=== PATIENT | female | born 1985 | race Asian ===

== ENCOUNTER 2018-10-26 09:04 | Observation (INO) | payer BC ==
[2018-10-26] MEDS ORDERED: ONDANSETRON 4 MG/2 ML VIAL ONE (09:13)
[2018-10-26] MEDS ORDERED: ONDANSETRON 4 MG/2 ML VIAL IVP ONE (09:15)
[2018-10-26] MEDS ORDERED: NS 1,000 ML IV ONE ×3 (09:15→12:04)
[2018-10-26] MEDS ORDERED: FAMOTIDINE 20 MG/2 ML SDV IVP ONE (09:23)
[2018-10-26] MEDS ORDERED: PROMETHAZINE HCL 25 MG/ML INJ IVP ONE (09:23)
--- NOTE | 2018-10-26 09:30 | EDPHY ---
General Time Seen by Provider: 10/26/18 09:15 Narrative: CLINICAL IMPRESSION: Nausea and vomiting in , probable gastroenteritis ASSESSMENT/PLAN: 32-year-old female presents to the emergency department with 2 days of nausea and vomiting. Patient reports a past history of hyperemesis gravidarum with 1st and this however had been feeling well for 2 weeks. She has a 3-year-old at home with a GI illness and believes she contracted this. No associated fever, chills, pelvic cramping, vaginal bleeding or abnormal vaginal discharge, UTI symptoms or flank pain. Strong and regular heart tones. Please see nursing chart notes. Patient received 2 L IV fluid, IV antiemetics, and attempted a p.o. Challenge but continued to vomit. She was only able to produce a small amount of concentrated urine after 2 L fluids. Patient is not feeling well enough to go home. Her primary OBGYN is at [facility]. I discussed with Dr. Alba, on-call for OBGYN who is happy to care for the patient here. Patient prefers to stay here and does not wish to be transferred to [facility]. She was stabilized in the ED and sent to Labor and delivery for further management. DIFFERENTIAL DX: Differential includes but not limited to hyperemesis gravidarum, acute gastroenteritis, electrolyte abnormality, labor, UTI ED PROCEDURES: See lab and/or imaging results below ED COURSE: 10:30 a.m.:. Patient reassessed, feeling better, resting comfortably, asking for food but would prefer to wait for her 2nd L of IV fluids. Still awaiting urine. Normal heart tones as documented in nursing chart notes. 12:00 p.m.: Patient vomiting again after trying oral challenge. Discussed admission which she would like to do. She was admitted for hyperemesis gravidarum for her 1st . Case discussed with hospitalist who recommends admission to OBGYN. Discussed with Dr. Alba, on-call for OBGYN. She gave the patient the option of staying here versus being transferred to [facility] with her primary OBGYN. Patient would like to stay here. CHIEF COMPLAINT: Nausea and vomiting in HPI: This is a pleasant 32-year-old female presents to the emergency department approximately 19 weeks with nausea and vomiting. Patient reports she had at hyperemesis gravidarum in her 1st trimester with both pregnancies. However, she has been feeling well for the last 2-3 weeks. Unfortunately her 3- year-old son developed a GI illness recently and she believes she may have acquired this. She reports no fevers or chills. She has some upper abdominal cramping and attributes this to"feeling hungry". No reports of lower pelvic cramping, contractions, or vaginal bleeding or discharge. No flank pain. No upper respiratory symptoms. She has prescriptions for Zofran and promethazine but has been unable to keep these down at home for the last 3 days. She is followed by OBGYN through [facility] PAST MEDICAL HISTORY: Hypothyroidism See nurse/triage notes for additional history if applicable Pertinent Past Surgical History: None reported Family History: Noncontributory Social History: , 19 weeks , here with her REVIEW OF SYSTEMS: All other systems negative Constitutional: No fever, no chills, positive for appetite change. Eyes: No discharge, vision change ENT: No sore throat, congestion, ear pain. Cardiovascular: No chest pain, no palpitations. Respiratory: No cough, no shortness of breath. Gastrointestinal: [Positive for upper abdominal cramping, positive for vomiting , denies diarrhea Genitourinary: No hematuria, dysuria, flank pain, pelvic pain Musculoskeletal: No back pain, joint swelling, joint pain, myalgias. Skin: No rashes, color change. Neurological: No headache, dizziness, weakness. PHYSICAL EXAM: General Appearance: Alert, oriented, appropriate, cooperative, actively vomiting, non-toxic appearing, tachycardic, tachypneic, hypertensive, no hypoxia. HEENT: Oropharynx clear is no erythema or exudates, no tonsillar hypertrophy or asymmetry. Dentition without abnormality. Respiratory: There are no retractions, lungs are clear to auscultation. Cardiac: Regular rate and rhythm, no murmurs or gallops. Gastrointestinal: [Abdomen is gravid, nontender, bowel sounds hypoactive Skin: Warm, dry, no rashes, no nodules on palpation. MEDICAL DECISION MAKING: Patient was seen independently. Secondary supervising physician at time of evaluation was Dr. Hallman . Diagnosis: Nausea and vomiting in . New, requires workup Summary: See Assessment and Plan for summary of ED visit Clinical lab tests: ordered / reviewed. Discussed with Dr. Alba and Dr. Hallman as well as hospitalist Patient Progress: Stable. - History Smoking Status: Never smoked - Objective Vital Signs: Initial Vital Signs Heart Rate 111 H 10/26/18 09:06 Respiratory Rate 22 H 10/26/18 09:06 Blood Pressure 125/101 H 10/26/18 09:06 O2 Sat (%) 98 10/26/18 09:06 O2 Delivery Mode Room Air Allergies/Adverse Reactions: No Known Allergies Allergy (Unverified 10/26/18 09:08) Home Medications: Medication Instructions Recorded Herbals/Supplements -Info Only 1 ea PO DAILY 10/26/18 Levothyroxine [Synthroid 200 mcg 200 mcg PO DAILY06 10/26/18 (*)] Ondansetron Odt [Zofran Odt] 4 mg PO BID 10/26/18 Vits96/Iron Fum/Folic 1 each PO DAILY 10/26/18 [ Tablet] Promethazine HCl [Phenergan 25mg 25 mg PO BID 10/26/18 (*)] Laboratory Results: Laboratory Results 10/26/18 09:20 10/26/18 09:20 10/26/18 10/26/18 09:20 09:20 WBC 9.26 10^3/uL 10^3/uL (3.80-9.50) RBC 4.88 10^6/uL 10^6/uL (4.18-5.33) Hgb 14.6 g/dL g/dL (12.6-16.3) Hct 42.3 % % (38.0-47.0) MCV 86.7 fL fL (81.5-99.8) MCH 29.9 pg pg (27.9-34.1) MCHC 34.5 g/dL g/dL (32.4-36.7) RDW 13.6 % % (11.5-15.2) Plt Count 321 10^3/uL 10^3/uL (150-400) MPV 9.9 fL fL (8.7-11.7) Neut % (Auto) 71.4 % % (39.3-74.2) Lymph % (Auto) 19.0 % % (15.0-45.0) [place] % (Auto) 8.4 % % (4.5-13.0) Eos % (Auto) 0.6 % % (0.6-7.6) Baso % (Auto) 0.2 % L % (0.3-1.7) Nucleat RBC Rel Count 0.0 % % (0.0-0.2) Absolute Neuts (auto) 6.60 10^3/uL H 10^3/uL (1.70-6.50) Absolute Lymphs (auto) 1.76 10^3/uL 10^3/uL (1.00-3.00) Absolute Monos (auto) 0.78 10^3/uL 10^3/uL (0.30-0.80) Absolute Eos (auto) 0.06 10^3/uL 10^3/uL (0.03-0.40) Absolute Basos (auto) 0.02 10^3/uL 10^3/uL (0.02-0.10) Absolute Nucleated RBC 0.00 10^3/uL 10^3/uL (0-0.01) Immature Gran % 0.4 % % (0.0-1.1) Immature Gran # 0.04 10^3/uL 10^3/uL (0.00-0.10) Sodium 136 mEq/L mEq/L (135-145) Potassium 3.8 mEq/L mEq/L (3.5-5.2) Chloride 105 mEq/L mEq/L (97-110) Carbon Dioxide 20 mEq/l L mEq/l (22-31) Anion Gap 11 mEq/L mEq/L (6-14) BUN 11 mg/dL mg/dL (7-23) Creatinine 0.7 mg/dL mg/dL (0.6-1.0) Estimated GFR > 60 Glucose 107 mg/dL H mg/dL (70-100) Calcium 9.2 mg/dL mg/dL (8.5-10.4) Medications Given: Lactated Ringer's (Lr) 1,000 mls @ 125 mls/hr IV CONT KESHA Stop: 04/24/19 14:59 Last Admin: 10/26/18 15:00 Dose: 1,000 mls Promethazine HCl (Phenergan) 25 mg IVP Q6HRS PRN PRN Reason: Nausea/Vomiting, Can't Take PO Stop: 04/24/19 14:35 Last Admin: 10/26/18 15:47 Dose: 25 mg Discontinued Medications Famotidine (Pepcid) 20 mg IVP EDNOW ONE Stop: 10/26/18 09:24 Last Admin: 10/26/18 09:28 Dose: 20 mg Sodium Chloride (Ns) 1,000 mls @ 0 mls/hr IV EDNOW ONE; Wide Open PRN Reason: Protocol Stop: 10/26/18 09:16 Last Admin: 10/26/18 09:16 Dose: 1,000 mls Sodium Chloride (Ns) 1,000 mls @ 0 mls/hr IV EDNOW ONE; Wide Open PRN Reason: Protocol Stop: 10/26/18 10:06 Last Admin: 10/26/18 10:12 Dose: 1,000 mls Sodium Chloride (Ns) 1,000 mls @ 0 mls/hr IV EDNOW ONE; Wide Open PRN Reason: Protocol Stop: 10/26/18 12:05 Last Admin: 10/26/18 12:11 Dose: 1,000 mls Metoclopramide HCl (Reglan Injection) 5 mg IVP EDNOW ONE Stop: 10/26/18 12:06 Last Admin: 10/26/18 12:11 Dose: 5 mg Ondansetron HCl (Zofran) 4 mg IVP EDNOW ONE Stop: 10/26/18 09:16 Last Admin: 10/26/18 09:17 Dose: 4 mg Promethazine HCl (Phenergan) 12.5 mg IVP ONCE ONE Stop: 10/26/18 09:24 Last Admin: 10/26/18 09:28 Dose: 12.5 mg Departure - Departure Disposition: [facility] In[facility] Acute Condition: Fair
[2018-10-26 09:32] LABS: PLATELET COUNT 321 10^3/uL (150-400)
[2018-10-26] MEDS ORDERED: METOCLOPRAMIDE 10 MG/2 ML VIAL IVP ONE (12:05)
[2018-10-26] MEDS ORDERED: PROMETHAZINE HCL 25 MG/ML INJ IVP PRN (14:36)
[2018-10-26] MEDS ORDERED: ONDANSETRON 4 MG/2 ML VIAL IVP PRN (14:37)
[2018-10-26] MEDS: LR 1,000 ML IV SCH ×2 (15:00→21:51)
[2018-10-26 20:55] VITALS: BP 99/63
[2018-10-27] MEDS ORDERED: LEVOTHYROXINE 200 MCG TAB PO SCH ×2 (06:00→08:30)
[2018-10-27] MEDS: LR 1,000 ML IV SCH (06:05)
[2018-10-27] MEDS ORDERED: ONDANSETRON DISINTEGRATING 4 MG TAB ONE (08:46)
[2018-10-27] MEDS ORDERED: ONDANSETRON DISINTEGRATING 4 MG TAB PO SCH (09:00)
--- NOTE | 2018-10-27 12:29 | PDGENHP ---
History and Physical - Chief Complaint N/V, - History of Present Illness 32-year-old female presents to the emergency department with 2 days of nausea and vomiting. Patient reports a past history of hyperemesis gravidarum with 1st and this however had been feeling well for 2 weeks. She has a 3-year-old at home with a GI illness and believes she contracted this. No associated fever, chills, pelvic cramping, vaginal bleeding or abnormal vaginal discharge, UTI symptoms or flank pain. Strong and regular heart tones. Please see nursing chart notes. Patient received 2 L IV fluid, IV antiemetics, and attempted a p.o. Challenge but continued to vomit. She was only able to produce a small amount of concentrated urine after 2 L fluids. Patient is not feeling well enough to go home. Her primary OBGYN is at [facility]. I discussed with Dr. Alba, on-call for OBGYN who is happy to care for the patient here. Patient prefers to stay here and does not wish to be transferred to [facility]. She was stabilized in the ED and sent to Labor and delivery for further management. History Information - Allergies/Home Medication List Allergies/Adverse Reactions: No Known Allergies Allergy (Unverified 10/26/18 09:08) Home Medications: Herbals/Supplements -Info Only 1 ea PO DAILY 10/26/18 [Last Taken Unknown] Levothyroxine [Synthroid 200 mcg (*)] 200 mcg PO DAILY06 10/26/18 [Last Taken ] Ondansetron Odt [Zofran Odt] 4 mg PO BID 10/26/18 [Last Taken Unknown] Vits96/Iron Fum/Folic [ Tablet] 1 each PO DAILY 10/26/18 [Last Taken Unknown] Promethazine HCl [Phenergan 25mg (*)] 25 mg PO BID 10/26/18 [Last Taken Unknown] - Social History Smoking Status: Never smoked Review of Systems Review of Systems: Physical Exam Physical Exam: Temp Pulse Resp BP Pulse Ox 36.7 C 66 16 99/63 L 99 10/26/18 20:54 10/26/18 20:54 10/26/18 20:54 10/26/18 20:54 10/26/18 20:54 Lab Data & Imaging Review 10/26/18 09:20 10/26/18 09:20 WBC 9.26 10^3/uL (3.80-9.50) 10/26/18 09:20 RBC 4.88 10^6/uL (4.18-5.33) 10/26/18 09:20 Hgb 14.6 g/dL (12.6-16.3) 10/26/18 09:20 Hct 42.3 % (38.0-47.0) 10/26/18 09:20 MCV 86.7 fL (81.5-99.8) 10/26/18 09:20 MCH 29.9 pg (27.9-34.1) 10/26/18 09:20 MCHC 34.5 g/dL (32.4-36.7) 10/26/18 09:20 RDW 13.6 % (11.5-15.2) 10/26/18 09:20 Plt Count 321 10^3/uL (150-400) 10/26/18 09:20 MPV 9.9 fL (8.7-11.7) 10/26/18 09:20 Neut % (Auto) 71.4 % (39.3-74.2) 10/26/18 09:20 Lymph % (Auto) 19.0 % (15.0-45.0) 10/26/18 09:20 [place] % (Auto) 8.4 % (4.5-13.0) 10/26/18 09:20 Eos % (Auto) 0.6 % (0.6-7.6) 10/26/18 09:20 Baso % (Auto) 0.2 % (0.3-1.7) L 10/26/18 09:20 Nucleat RBC Rel Count 0.0 % (0.0-0.2) 10/26/18 09:20 Absolute Neuts (auto) 6.60 10^3/uL (1.70-6.50) H 10/26/18 09:20 Absolute Lymphs (auto) 1.76 10^3/uL (1.00-3.00) 10/26/18 09:20 Absolute Monos (auto) 0.78 10^3/uL (0.30-0.80) 10/26/18 09:20 Absolute Eos (auto) 0.06 10^3/uL (0.03-0.40) 10/26/18 09:20 Absolute Basos (auto) 0.02 10^3/uL (0.02-0.10) 10/26/18 09:20 Absolute Nucleated RBC 0.00 10^3/uL (0-0.01) 10/26/18 09:20 Immature Gran % 0.4 % (0.0-1.1) 10/26/18 09:20 Immature Gran # 0.04 10^3/uL (0.00-0.10) 10/26/18 09:20 Sodium 136 mEq/L (135-145) 10/26/18 09:20 Potassium 3.8 mEq/L (3.5-5.2) 10/26/18 09:20 Chloride 105 mEq/L (97-110) 10/26/18 09:20 Carbon Dioxide 20 mEq/l (22-31) L 10/26/18 09:20 Anion Gap 11 mEq/L (6-14) 10/26/18 09:20 BUN 11 mg/dL (7-23) 10/26/18 09:20 Creatinine 0.7 mg/dL (0.6-1.0) 10/26/18 09:20 Estimated GFR > 60 10/26/18 09:20 Glucose 107 mg/dL (70-100) H 10/26/18 09:20 Calcium 9.2 mg/dL (8.5-10.4) 10/26/18 09:20 Urine RBC 1-3 /hpf (0-3) 10/26/18 17:20 Urine WBC 0-1 /hpf (0-3) 10/26/18 17:20 Ur Epithelial Cells TRACE /lpf (NONE-1+) 10/26/18 17:20 Urine Bacteria TRACE /hpf (NONE SEEN) H 10/26/18 17:20 Urine Mucus TRACE /lpf (NONE-1+) 10/26/18 17:20 Imaging Review: Laboratory Results 10/26/18 09:20 10/26/18 09:20 10/26/18 10/26/18 09:20 09:20 WBC 9.26 10^3/uL 10^3/uL (3.80-9.50) RBC 4.88 10^6/uL 10^6/uL (4.18-5.33) Hgb 14.6 g/dL g/dL (12.6-16.3) Hct 42.3 % % (38.0-47.0) MCV 86.7 fL fL (81.5-99.8) MCH 29.9 pg pg (27.9-34.1) MCHC 34.5 g/dL g/dL (32.4-36.7) RDW 13.6 % % (11.5-15.2) Plt Count 321 10^3/uL 10^3/uL (150-400) MPV 9.9 fL fL (8.7-11.7) Neut % (Auto) 71.4 % % (39.3-74.2) Lymph % (Auto) 19.0 % % (15.0-45.0) [place] % (Auto) 8.4 % % (4.5-13.0) Eos % (Auto) 0.6 % % (0.6-7.6) Baso % (Auto) 0.2 % L % (0.3-1.7) Nucleat RBC Rel Count 0.0 % % (0.0-0.2) Absolute Neuts (auto) 6.60 10^3/uL H 10^3/uL (1.70-6.50) Absolute Lymphs (auto) 1.76 10^3/uL 10^3/uL (1.00-3.00) Absolute Monos (auto) 0.78 10^3/uL 10^3/uL (0.30-0.80) Absolute Eos (auto) 0.06 10^3/uL 10^3/uL (0.03-0.40) Absolute Basos (auto) 0.02 10^3/uL 10^3/uL (0.02-0.10) Absolute Nucleated RBC 0.00 10^3/uL 10^3/uL (0-0.01) Immature Gran % 0.4 % % (0.0-1.1) Immature Gran # 0.04 10^3/uL 10^3/uL (0.00-0.10) Sodium 136 mEq/L mEq/L (135-145) Potassium 3.8 mEq/L mEq/L (3.5-5.2) Chloride 105 mEq/L mEq/L (97-110) Carbon Dioxide 20 mEq/l L mEq/l (22-31) Anion Gap 11 mEq/L mEq/L (6-14) BUN 11 mg/dL mg/dL (7-23) Creatinine 0.7 mg/dL mg/dL (0.6-1.0) Estimated GFR > 60 Glucose 107 mg/dL H mg/dL (70-100) Calcium 9.2 mg/dL mg/dL (8.5-10.4) Medications Given: Lactated Ringer's (Lr) 1,000 mls @ 125 mls/hr IV CONT KESHA Stop: 04/24/19 14:59 Last Admin: 10/26/18 15:00 Dose: 1,000 mls Promethazine HCl (Phenergan) 25 mg IVP Q6HRS PRN PRN Reason: Nausea/Vomiting, Can't Take PO Stop: 04/24/19 14:35 Last Admin: 10/26/18 15:47 Dose: 25 mg Discontinued Medications Famotidine (Pepcid) 20 mg IVP EDNOW ONE Stop: 10/26/18 09:24 Last Admin: 10/26/18 09:28 Dose: 20 mg Sodium Chloride (Ns) 1,000 mls @ 0 mls/hr IV EDNOW ONE; Wide Open PRN Reason: Protocol Stop: 10/26/18 09:16 Last Admin: 10/26/18 09:16 Dose: 1,000 mls Sodium Chloride (Ns) 1,000 mls @ 0 mls/hr IV EDNOW ONE; Wide Open PRN Reason: Protocol Stop: 10/26/18 10:06 Last Admin: 10/26/18 10:12 Dose: 1,000 mls Sodium Chloride (Ns) 1,000 mls @ 0 mls/hr IV EDNOW ONE; Wide Open PRN Reason: Protocol Stop: 10/26/18 12:05 Last Admin: 10/26/18 12:11 Dose: 1,000 mls Metoclopramide HCl (Reglan Injection) 5 mg IVP EDNOW ONE Stop: 10/26/18 12:06 Last Admin: 10/26/18 12:11 Dose: 5 mg Ondansetron HCl (Zofran) 4 mg IVP EDNOW ONE Stop: 10/26/18 09:16 Last Admin: 10/26/18 09:17 Dose: 4 mg Promethazine HCl (Phenergan) 12.5 mg IVP ONCE ONE Stop: 10/26/18 09:24 Last Admin: 10/26/18 09:28 Dose: 12.5 mg
== END 2018-10-27 10:14 | disposition home or self-care (01) ==
LOC: FLD 13:15
PROVIDERS: ADMIT Obstetrics & Gynecology; ATTEND Obstetrics & Gynecology
DX: R11.2 Nausea with vomiting, unspecified (principal); E86.0 Dehydration; Z3A.19 19 weeks gestation of pregnancy
CPT/HCPCS: 96361; 96374; 96375; 96376; 99285; G0378; J2405; J2550; J2765